=== PATIENT | female | born 2005 | race Hispanic/Latino ===

== ENCOUNTER 2024-05-02 13:11 | Emergency (ER) | payer SELFPAY, OTHER ==
[2024-05-02] MEDS ORDERED: Acetaminophen 500 MG TAB ONE (15:12)
== END 2024-05-02 16:04 | disposition home or self-care (01) ==
LOC: ERS 13:11
DX: R07.81 Pleurodynia (principal); R51.9 Headache, unspecified; V49.59XA Passenger injured in collision with other motor vehicles in traffic accident, initial encounter
CPT/HCPCS: 71046